=== PATIENT | male | born 1965 | race Caucasian/White ===

== ENCOUNTER → 2020-12-27 | Day surgery (SDC) | payer OTHER ==
[2020-12-25 12:34] VITALS: BMI 34.7
[~2020-12-27] MED LIST: PROPOFOL 20 ML ONE
== END | disposition home or self-care (01) ==
LOC: CSHSDC 10:28
PROVIDERS: ATTEND Internal Medicine Gastroenterology
DX: Z12.11 Encounter for screening for malignant neoplasm of colon (principal); K22.70 Barrett's esophagus without dysplasia; K63.5 Polyp of colon; K21.9 Gastro-esophageal reflux disease without esophagitis; K57.30 Diverticulosis of large intestine without perforation or abscess without bleeding; K64.9 Unspecified hemorrhoids
CPT/HCPCS: 88305; J2704